=== PATIENT | female | born 1970 | race Caucasian/White ===

== ENCOUNTER → 2021-12-23 | Outpatient (CLI) | payer BC | LOC: KOH-I 15:30 | DX: S82.832A Other fracture of upper and lower end of left fibula, initial encounter for closed fracture (principal); M19.072 Primary osteoarthritis, left ankle and foot; M79.89 Other specified soft tissue disorders; S93.05XA Dislocation of left ankle joint, initial encounter | CPT/HCPCS: 73700 ==

== ENCOUNTER → 2021-12-29 | Outpatient (CLI) | payer BC | LOC: KOH-I 15:47 | DX: S82.402A Unspecified fracture of shaft of left fibula, initial encounter for closed fracture (principal) | CPT/HCPCS: 73610 ==

== ENCOUNTER → 2022-01-26 | Outpatient (CLI) | payer BC | LOC: KOH-I 15:32 | DX: S82.832G Other fracture of upper and lower end of left fibula, subsequent encounter for closed fracture with delayed healing (principal); S82.52XA Displaced fracture of medial malleolus of left tibia, initial encounter for closed fracture | CPT/HCPCS: 73590; 73610 ==